=== PATIENT | male | born 1985 | race Caucasian/White ===

== ENCOUNTER 2017-02-15 13:22 | Observation (INO) | payer SELFPAY ==
[~2017-02-15] VITALS: Ht 180.3 cm; Wt 92.0 kg
--- NOTE | 2017-02-15 14:34 | EMERGENCY ROOM VISIT NOTE ---
History Report prepared by Savanah: Gely Villanueva Under the Supervision of: Dr. Lara Metcalf D.O. First contact with patient: 14:15 Chief Complaint: ABDOMINAL PAIN Stated Complaint: PAIN IN RIGHT SIDE AND NUT History of Present Illness The patient is a 31 year old male who presents to the Emergency Room with complaints of worsening central abdominal cramping beginning three days ago. The patient thought his pain was constipation related. He reports taking a laxative last night and not having a bowel movement since. This morning, the patient's pain moved to a right lower abdominal pain which radiates to his testicles. He reports nausea, decreased appetite, chills, and decreased urination. He reports increased pain with standing straight up. The patient took Tylenol this morning with minimal relief. He denies any history of abdominal surgeries. Pt denies headache, change in vision, fevers, chest pain, shortness of breath, vomiting, diarrhea, pain with urination, and melena. Source of History: patient Onset: 3 days ago Position: abdomen Quality: cramping Timing: worsening Associated Symptoms: + chills, + nausea, + abdominal pain, + urinary symptoms, No fevers, No headache, No chest pain, No SOB, No vomiting Review of Systems See HPI for pertinent positives & negatives. A total of 10 systems reviewed and were otherwise negative. Past Medical & Surgical Medical Problems: (1) Ulcer Family History Cancer Diabetes mellitus Hypertension Kidney disease Social History Smoking Status: Current Every Day Smoker Alcohol Use: occasionally Housing Status: lives alone Occupation Status: employed Current/Historical Medications No Active Prescriptions or Reported Meds Allergies Coded Allergies: No Known Allergies (Verified , 10/12/15) Physical Exam Vital Signs Date Time Temp Pulse Resp B/P (MAP) Pulse Ox O2 Delivery O2 Flow Rate FiO2 02/15/17 21:05 85 16 137/67 94 Oxymask 8 02/15/17 20:55 37.9 91 16 131/75 95 Oxymask 8 02/15/17 18:26 74 20 115/78 99 Room Air 02/15/17 18:15 99 Room Air 02/15/17 17:50 78 18 119/71 97 Room Air 02/15/17 16:58 94 20 117/74 99 Room Air 02/15/17 15:22 80 20 114/67 97 Room Air 02/15/17 13:28 38.2 97 18 133/79 96 Room Air Physical Exam GENERAL: alert, well appearing, well nourished, no distress, non-toxic EYE EXAM: normal conjunctiva, PERRL and EOM's grossly intact OROPHARYNX: no exudate, no erythema, lips, buccal mucosa, and tongue normal and mucous membranes are moist NECK: supple, no nuchal rigidity, no adenopathy, non-tender LUNGS: Clear to auscultation. Normal chest wall mechanics HEART: no murmurs, S1 normal and S2 normal ABDOMEN: RLQ pain to palpation, tender at Mcburney's point, no rebound, minimal guarding. BACK: Back is symmetrical on inspection and there is no deformity, no midline tenderness, no CVA tenderness. SKIN: no rashes and no bruising UPPER EXTREMITIES: upper extremities are grossly normal. LOWER EXTREMITIES: No pitting edema. NEURO EXAM: Normal sensorium, cranial nerves II-XII grossly intact, normal speech, no gross weakness of arms, no gross weakness of legs. Medical Decision & Procedures ER Provider Diagnostic Interpretation: Radiology results have been interpreted by the radiologist and reviewed by me. ABD/PELVIS IV AND ORAL CONT FINDINGS: Delivery Table Operator topogram: Unremarkable. Lung bases: Minimal basilar opacities, likely atelectasis. Normal heart size. No pericardial or pleural effusion. Liver: Normal morphology. No liver lesion. Patent hepatic vasculature. Biliary: No intrahepatic or extrahepatic biliary ductal dilatation. Normal gallbladder. Pancreas: Normal. Spleen: Normal. Adrenal glands: Normal. Kidneys and ureters: Normal. No hydronephrosis. Bladder: Normal. Pelvic organs: Prostate and seminal vesicles normal. Bowel: Mild stool burden in the left colon. Oral contrast has transited to the transverse colon. The appendix is dilated, nonopacified with contrast and surrounded by fat stranding, trace fluid, and peritoneal thickening. Multiple foci of gas at the tip noted, which do not all conform to the expected luminal contour. No bowel obstruction. Peritoneal cavity: Trace fluid in the right paracolic gutter. Lymph nodes: No enlarged lymph nodes in the abdomen or pelvis. Vasculature: Aorta and IVC patent and normal in caliber. Abdominal wall: Normal. Musculoskeletal: Subacute to chronic fractures of the anterior fourth and fifth ribs. IMPRESSION: 1. Findings consistent with acute appendicitis. The presence of gas at the appendiceal tip raises concern for either contained perforation and/or gangrenous appendicitis. No periappendiceal abscess. The report will be called/faxed according to standard departmental protocol. Electronically signed by: Ritchie Valladares M.D. Laboratory Results Test 02/15/17 14:59 02/15/17 15:20 Prothrombin Time 11.3 SECONDS (9.0-12.0) Prothromb Time International Ratio 1.1 (0.9-1.1) Total Bilirubin 1.0 mg/dl (0.2-1) Aspartate Amino Transf (AST/SGOT) 15 U/L (15-37) Alanine Aminotransferase (ALT/SGPT) 26 U/L (12-78) Alkaline Phosphatase 117 U/L (45-117) Total Protein 7.9 gm/dl (6.4-8.2) Albumin 4.0 gm/dl (3.4-5.0) Globulin 3.9 gm/dl (2.5-4.0) Albumin/Globulin Ratio 1.0 (0.9-2) Urine Color DK YELLOW Urine Appearance TURBID (CLEAR) Urine pH 5.5 (4.5-7.5) Urine Specific [place] 1.023 (1.000-1.030) Urine Protein NEG (NEG) Urine Glucose (UA) NEG (NEG) Urine Ketones 1+ (NEG) Urine Occult Blood NEG (NEG) Urine Nitrite NEG (NEG) Urine Bilirubin NEG (NEG) Urine Urobilinogen NEG (NEG) Urine Leukocyte Esterase TRACE (NEG) Urine WBC (Auto) 1-5 /hpf (0-5) Urine RBC (Auto) 0-4 /hpf (0-4) Urine Hyaline Casts (Auto) 1-5 /lpf (0-5) Urine Epithelial Cells (Auto) 0-5 /lpf (0-5) Urine Bacteria (Auto) NEG (NEG) Laboratory results per my review. Medications Administered Medications (Trade) Dose Ordered Sig/Drea Route Start Time Stop Time Status Last Admin Dose Admin Sodium Chloride 1,000 ml @ 200 mls/hr Q5H STAT IV 02/15/17 14:45 02/15/17 19:44 DC 02/15/17 15:17 200 MLS/HR Ondansetron HCl (Zofran Inj) 4 mg NOW STAT IV 02/15/17 14:45 02/15/17 14:47 DC 02/15/17 15:16 4 MG Fentanyl Citrate (Fentanyl Inj) 50 mcg NOW STAT IV 02/15/17 14:45 02/15/17 14:47 DC 02/15/17 15:17 50 MCG Acetaminophen 650 mg/Empty Bag 65 ml @ 260 mls/hr NOW STAT IV 02/15/17 15:04 02/15/17 15:18 DC 02/15/17 15:16 260 MLS/HR Morphine Sulfate (MoRPHine SULFATE INJ) 4 mg NOW STAT IV 02/15/17 17:49 02/15/17 17:50 DC 02/15/17 18:18 4 MG Cefoxitin Sodium 2000 mg/Dextrose 60 ml @ 120 mls/hr ONE ONCE IV 02/15/17 18:15 02/15/17 18:44 DC 02/15/17 18:18 120 MLS/HR Bupivacaine HCl/ Epinephrine Bitart (Sensorcaine/ Epinephrine 0.5% Mpf 1:200,000) 30 ml STK-MED ONCE .ROUTE 02/15/17 18:47 02/15/17 18:48 DC 02/15/17 20:43 19 ML Acetaminophen 100 ml @ 400 mls/hr Q8H PRN IV 02/15/17 21:00 03/17/17 20:59 02/15/17 23:25 400 MLS/HR Hydromorphone HCl (Dilaudid Inj) 0.5 mg Q3H PRN IV 02/15/17 21:00 03/01/17 20:59 02/16/17 17:52 0.5 MG Acetaminophen/ Hydrocodone Bitart ([place] 5/325 Tab) 2 tab Q4H PRN PO 02/15/17 21:00 03/01/17 20:59 02/16/17 12:05 2 TAB Hydromorphone HCl (Dilaudid Inj) 1 mg Q3H PRN IV 02/15/17 21:00 03/01/17 20:59 02/16/17 21:25 1 MG Lactated Ringer's 1,000 ml @ 100 mls/hr Q10H IV 02/15/17 20:54 03/17/17 20:53 02/16/17 14:42 100 MLS/HR ED Course 1423: The patient was evaluated in room C3. A complete history and physical exam was performed. 1445: Ordered Fentanyl Citrate 50 mcg IV, Zofran Inj 4 mg IV, Sodium Chloride 1000 ml @ 200 mls/hr IV. 1504: Ordered Acetaminophen 650 mg/Empty Bag 65 ml @ 260 mls/hr IV. 1601: I updated the patient on his elevated white count. He is resting comfortably. 1741: I updated the patient on his CT results. 1743: I reviewed the patient's case with Dr. Polo Surgery. He will evaluate the patient for further management. 1744: Ordered Cefoxitin Sodium 2000 mg IV. 1746: I updated the patient on the treatment plan. 1749: Ordered Morphine Sulfate 4 mg IV. Medical Decision Differential diagnosis: Etiologies such as appendicitis, diverticulitis, PUD, biliary pathology, UTI, pancreatitis, obstruction, mesenteric ischemia, aortic pathology, infections, inflammatory bowel disease, renal colic, as well as others were entertained. Pt with good story for and CT confirmation of appendicitis, no abscess, possible early contained perf. No other acute GI or pathology. No bacteremia/sepsis. Case discussed with general surgery. Antibiotics ordered. Pt NPO. Pain and nausea controlled with meds. Pt aware of all findings and was agreeable with plan. Medication Reconcilliation Current Medication List: was personally reviewed by me Blood Pressure Screening Patient's blood pressure: Normal blood pressure Consults Time Called: 1739 Consulting Physician: Dr. Richardson- Surgery Returned Call: 1742 I reviewed the patient's case with Dr. Christ Lindsay. He will evaluate the patient for further management. Impression Primary Impression: Acute appendicitis Scribe Attestation The scribe's documentation has been prepared under my direction and personally reviewed by me in its entirety. I confirm that the note above accurately reflects all work, treatment, procedures, and medical decision making performed by me. Departure Information Dispostion Being Evaluated By Hospitalist Prescriptions No Active Prescriptions or Reported Meds Referrals No Doctor, Assigned (PCP) Patient Instructions [facility] Problem Qualifiers Primary Impression: Acute appendicitis Acute appendicitis type: with localized peritonitis Qualified Codes: K35.3 - Acute appendicitis with localized peritonitis
[2017-02-15] MEDS ORDERED: FENTANYL CITRATE INJ 50 MCG/1 ML 2 ML VIAL IV STA (14:45)
[2017-02-15] MEDS ORDERED: SODIUM CHLORIDE 0.9% 1000ML 1,000 ML IV STA (14:45)
[2017-02-15] MEDS ORDERED: ONDANSETRON INJ 2 MG/ML 2 ML VIAL IV STA (14:45)
[2017-02-15] MEDS ORDERED: OPTIRAY 320 IV PRN (15:00)
[2017-02-15] MEDS ORDERED: ACETAMINOPHEN IV 650 MG in EMPTY BAG 0 ML IV STA (15:04)
[2017-02-15 15:13] LABS: BASO % 0.1 %; BASO ABS # 0.01 K/uL (0-0.2); EOS % 0.1 %; EOS ABS # 0.01 K/uL (0-0.5); HEMATOCRIT 45.9 % (42-52); HEMOGLOBIN 15.9 g/dL (14.0-18.0); IG# 0.06 K/uL (0.00-0.02); LYMPH % 5.5 %; LYMPH ABS # 0.99 K/uL (1.2-3.4); MEAN CELL VOLUME 91.4 fL (80-100); MEAN CORPUSCULAR HEMOGLOBIN 31.7 pg (25-34); MEAN CORPUSCULAR HGB CONC 34.6 g/dl (32-36); MEAN PLATELET VOLUME 10.2 fL (7.4-10.4); MONO % 9.1 %; MONO ABS # 1.63 K/uL (0.11-0.59); NEUT % 84.9 %; NEUT ABS # 15.18 K/uL (1.4-6.5); PLATELET COUNT 274 K/uL (130-400); RED CELL DISTRIBUTION WIDTH CV 12.5 % (11.5-14.5); RED CELL DISTRIBUTION WIDTH SD 41.7 fL (36.4-46.3); WHITE BLOOD COUNT 17.88 K/uL (4.8-10.8)
[2017-02-15 15:19] LABS: INR 1.1 (0.9-1.1)
[2017-02-15 15:30] LABS: CREATININE 1.08 mg/dl (0.60-1.40); POTASSIUM 4.2 mmol/L (3.5-5.1)
[2017-02-15 15:33] LABS: TOTAL PROTEIN 7.9 gm/dl (6.4-8.2)
--- NOTE | 2017-02-15 17:33 | DIAGNOSTIC IMAGING REPORT ---
ABD/PELVIS IV AND ORAL CONT CLINICAL HISTORY: 31 years-old Male presenting with rlq pain. TECHNIQUE: Multidetector CT of the abdomen and pelvis was performed after the administration of oral and intravenous contrast. IV contrast: 93 mL of Optiray 320. A dose lowering technique was used consistent with the principles of ALARA (as low as reasonably achievable). COMPARISON: None. CT DOSE (mGy.cm): The estimated cumulative dose is 539.61 mGy.cm. 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 Lung bases: Minimal basilar opacities, likely atelectasis. Normal heart size. No pericardial or pleural effusion. Liver: Normal morphology. No liver lesion. Patent hepatic vasculature. Biliary: No intrahepatic or extrahepatic biliary ductal dilatation. Normal gallbladder. Pancreas: Normal. Spleen: Normal. Adrenal glands: Normal. Kidneys and ureters: Normal. No hydronephrosis. Bladder: Normal. Pelvic organs: Prostate and seminal vesicles normal. Bowel: Mild stool burden in the left colon. Oral contrast has transited to the transverse colon. The appendix is dilated, nonopacified with contrast and surrounded by fat stranding, trace fluid, and peritoneal thickening. Multiple foci of gas at the tip noted, which do not all conform to the expected luminal contour. No bowel obstruction. Peritoneal cavity: Trace fluid in the right paracolic gutter. Lymph nodes: No enlarged lymph nodes in the abdomen or pelvis. Vasculature: Aorta and IVC patent and normal in caliber. Abdominal wall: Normal. Musculoskeletal: Subacute to chronic fractures of the anterior fourth and fifth ribs. IMPRESSION: 1. Findings consistent with acute appendicitis. The presence of gas at the appendiceal tip raises concern for either contained perforation and/or gangrenous appendicitis. No periappendiceal abscess. The report will be called/faxed according to standard departmental protocol. Electronically signed by: Ritchie Valladares M.D. 02/15/2017 5:31 PM Dictated Date/Time: 02/15/2017 5:24 PM
[2017-02-15] MEDS ORDERED: CEFOXITIN 2000MG/60 ML D5W IV STA (17:44)
[2017-02-15] MEDS ORDERED: MoRPHine SULFATE 4 MG/ML 1 ML CARP\\VIAL IV STA (17:49)
[2017-02-15 18:15] VITALS: O2SAT 99; Ht 180.3 cm; Wt 92.0 kg
[2017-02-15] MEDS ORDERED: CEFOXITIN IV 2,000 MG in DEXTROSE 5% 50ML 50 ML IV ONE (18:15)
--- NOTE | 2017-02-15 18:15 | NUR ---
A/ID: 31 year old male in ED. c/o central abdominal pain X 3 days. +nausea,+anorexia,+ decreased urination. CT report of acute appendicitis. Possible admission/observation. Admission Assessment done. Code Word/Fall Agreement reviewed with patient, and completed. Continued care in ED by CITLALI Callahan.
[2017-02-15] MEDS ORDERED: DEXAMETHASONE SOD INJ 4 MG/ML VIAL ONE (18:34)
[2017-02-15] MEDS ORDERED: GLYCOPYRROLATE INJ 0.2 MG/ML VIAL ONE (18:34)
[2017-02-15] MEDS ORDERED: MIDAZOLAM HCL 1 MG/ML 2ML VIAL ONE (18:34)
[2017-02-15] MEDS ORDERED: FENTANYL CITRATE INJ 50 MCG/1 ML 2 ML VIAL ONE ×3 (18:34→21:17)
[2017-02-15] MEDS ORDERED: PROPOFOL IV EMULSION 10 MG/ML 20 ML VIAL IV ONE (18:34)
[2017-02-15] MEDS ORDERED: LIDOCAINE HCL 2% 2 ML VIAL (20MG/ML) ONE ×2 (18:34→20:03)
[2017-02-15] MEDS ORDERED: NEOSTIGMINE METHYLSULFATE 5 MG/5 ML SYR ONE (18:34)
[2017-02-15] MEDS ORDERED: ONDANSETRON INJ 2 MG/ML 2 ML VIAL ONE (18:34)
[2017-02-15] MEDS ORDERED: ROCURONIUM BROMIDE 10 MG/ML 5 ML VIAL IV ONE (18:34)
[2017-02-15] MEDS ORDERED: BUPIVACAINE/EPINEPHRINE 0.5% MPF 1:200,000 30 ML VIAL ONE (18:47)
--- NOTE | 2017-02-15 19:22 | Medical Consult ---
Consultation Date of Consultation: Feb 15, 2017. Attending Physician: Reason for Consultation: Acute Appendicitis History of Present Illness Patient presented to the ED today due to a 2 day history of abdominal pain. States it started right below his sternum the 1st day, then migrated up and down his midline abdomen the 2nd day and now it has localized down to his RLQ. States he has felt nauseous since the onset of his pain but denies any episodes of vomiting. He thought he might be constipated so he took a laxative 2 days ago but reports he has not had a bowel movement since he took the laxative. States his appetite has been decreased as well. He has not eaten since yesterday afternoon. Reports that last night he had some chills and felt feverish today. Patient does not currently take any outpatient medications and denies any cardiac or pulmonary problems. 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 CT abd/pelvis in the ED confirms acute appendicitis with gas at the appendiceal tip concerning for either a contained perforation and/or gangrenous appendicitis. with no abscess formation noted. CT also shows a mild stool burden in the left colon but no obstruction noted. Past Medical/Surgical History Medical Problems: (1) Acute appendicitis Status: Acute Family History Cancer Diabetes mellitus Hypertension Kidney disease Social History Smoking Status: Current Every Day Smoker Housing Status: lives alone Occupation Status: employed Allergies Coded Allergies: No Known Allergies (Verified , 10/12/15) Current Inpatient Medications Current Inpatient Medications Medications (Trade) Dose Ordered Sig/Drea Route Start Time Stop Time Status Last Admin Dose Admin Sodium Chloride 1,000 ml @ 200 mls/hr Q5H STAT IV 02/15/17 14:45 02/15/17 19:44 02/15/17 15:17 200 MLS/HR Ioversol (Optiray 320) 100 ml UD PRN IV 02/15/17 15:00 02/19/17 14:59 Review of Systems Constitutional: + fever (today), + chills (last night) Respiratory: No shortness of breath Cardiovascular: No chest pain Abdomen: + pain (RLQ), + nausea, + constipation (took laxative 2 days ago, no BM since), No vomiting, No diarrhea Genitourinary - Male: No dysuria Hematologic / Lymphatic: No abnormal bleeding/bruising Integumentary: No rash, No color change Physical Exam Date Time Temp Pulse Resp B/P (MAP) Pulse Ox O2 Delivery O2 Flow Rate FiO2 02/15/17 18:26 74 20 115/78 99 Room Air 02/15/17 18:15 99 Room Air 02/15/17 17:50 78 18 119/71 97 Room Air 02/15/17 16:58 94 20 117/74 99 Room Air 02/15/17 15:22 80 20 114/67 97 Room Air 02/15/17 13:28 38.2 97 18 133/79 96 Room Air General Appearance: WD/WN, no apparent distress Head: normocephalic, atraumatic Eyes: normal inspection ENT: hearing grossly normal Neck: trachea midline Respiratory/Chest: lungs clear, normal breath sounds, no respiratory distress, no accessory muscle use Cardiovascular: regular rate, rhythm, no gallop, no murmur Abdomen/GI: normal bowel sounds, soft, no organomegaly, no pulsatile mass, + tenderness (RLQ TTP) Neurologic/Psych: alert, oriented x 3 Skin: normal color, warm/dry, no rash Laboratory Results Last 24 Hours Test 02/15/17 14:59 02/15/17 15:20 White Blood Count 17.88 K/uL Red Blood Count 5.02 M/uL Hemoglobin 15.9 g/dL Hematocrit 45.9 % Mean Corpuscular Volume 91.4 fL Mean Corpuscular Hemoglobin 31.7 pg Mean Corpuscular Hemoglobin Concent 34.6 g/dl Platelet Count 274 K/uL Mean Platelet Volume 10.2 fL Neutrophils (%) (Auto) 84.9 % Lymphocytes (%) (Auto) 5.5 % Monocytes (%) (Auto) 9.1 % Eosinophils (%) (Auto) 0.1 % Basophils (%) (Auto) 0.1 % Neutrophils # (Auto) 15.18 K/uL Lymphocytes # (Auto) 0.99 K/uL Monocytes # (Auto) 1.63 K/uL Eosinophils # (Auto) 0.01 K/uL Basophils # (Auto) 0.01 K/uL RDW Standard Deviation 41.7 fL RDW Coefficient of Variation 12.5 % Immature Granulocyte % (Auto) 0.3 % Immature Granulocyte # (Auto) 0.06 K/uL Prothrombin Time 11.3 SECONDS Prothromb Time International Ratio 1.1 Sodium Level 133 mmol/L Potassium Level 4.2 mmol/L Chloride Level 100 mmol/L Carbon Dioxide Level 26 mmol/L Anion Gap 7.0 mmol/L Blood Urea Nitrogen 13 mg/dl Creatinine 1.08 mg/dl Est Creatinine Clear Calc Drug Dose 114.9 ml/min Estimated GFR () 105.4 Estimated GFR (Non- 91.0 BUN/Creatinine Ratio 11.9 Random Glucose 98 mg/dl Calcium Level 9.0 mg/dl Total Bilirubin 1.0 mg/dl Aspartate Amino Transf (AST/SGOT) 15 U/L Alanine Aminotransferase (ALT/SGPT) 26 U/L Alkaline Phosphatase 117 U/L Total Protein 7.9 gm/dl Albumin 4.0 gm/dl Globulin 3.9 gm/dl Albumin/Globulin Ratio 1.0 Urine Color DK YELLOW Urine Appearance TURBID Urine pH 5.5 Urine Specific [place] 1.023 Urine Protein NEG Urine Glucose (UA) NEG Urine Ketones 1+ Urine Occult Blood NEG Urine Nitrite NEG Urine Bilirubin NEG Urine Urobilinogen NEG Urine Leukocyte Esterase TRACE Urine WBC (Auto) 1-5 /hpf Urine RBC (Auto) 0-4 /hpf Urine Hyaline Casts (Auto) 1-5 /lpf Urine Epithelial Cells (Auto) 0-5 /lpf Urine Bacteria (Auto) NEG Assessment & Plan Acute appendicitis with possible contained perforation and/or gangrenous appendicitis. No periappendiceal abscess. Via CT abd/pelvis Patient scheduled for laparoscopic appendectomy tonight with Dr. Richardson. NPO, SCDs, IV fluids, 2g IV cefoxitin administered. Risks, benefits and alternatives to the procedure were discussed with the patient and his family - all questions were answered. Findings discussed with Dr. Richardson. Please contact with questions or concerns. as above. discussed options/risks. questions answered. will proceed with lap/ poss open appendectomy tonight.
[2017-02-15] MEDS ORDERED: MoRPHine SULFATE 2 MG/ML CARP ONE (19:43)
--- NOTE | 2017-02-15 20:47 | [facility] Operative Report ---
Operative Report Operative Date Feb 15, 2017. Pre-Operative Diagnosis Acute appendicitis Post-Operative Diagnosis Acute appendicitis Procedure(s) Performed Laparoscopic Appendectomy Surgeon Dr. Richardson Certified Shorthand Reporter Surgeon(s) London Ríos Findings acutely inflammed appendix with gangrenous tip. no obvious perforation Specimens Permanent Specimen A. Appendix Anesthesia get Complication(s) None Disposition Recovery Room / PACU Description of Procedure After informed consent was obtained the patient was taken the operating room and placed in a supine position. After successful intubation the left arm was tucked and a Woodall catheter was placed. The abdomen was then shaved and sterilely prepped and draped in usual fashion. An infraumbilical incision was made with an 11 blade scalpel and carried down through the soft tissue using electrocautery. Anterior rectus fascia was opened using electrocautery and 2 # 0 Vicryl stay sutures were placed. Peritoneum was elevated with hemostats and incised under direct vision using a Metzenbaum scissor. A finger sweep was performed. A 12 mm Mason trocar was placed and the abdomen was insufflated to 18 mmHg. Laparoscope was inserted and the abdomen was examined 360. There was already some peritoneal inflammation and dilated small bowel consistent with an ileus. A suprapubic 5 mm port and a left lower quadrant 12 mm port were placed under direct vision. The patient was placed in a Trendelenburg position and slightly airplaned to the left. There was obvious inflammation in the right lower quadrant. I was able to roll the cecum back exposing the base of the appendix. The base itself was not inflamed but the entire distal appendix was markedly inflamed and retrocecal. I was able to create a small window in the mesoappendix at its base with the cecum and used a ISAI Brown cartridge stapler to transect it at its base with the cecum. I then used primarily blunt dissection to free up the appendix from surrounding retrocecal tissue. The retroperitoneum was markedly inflamed and thickened as well. Eventually I was able to identify the tip and elevate it. A second firing of a ISAI 60 mm Brown cartridge was used to transect the meso-appendix. The appendix was placed into an Endo Catch bag. We thoroughly irrigated the right lower quadrant. There was adequate hemostasis at the end of the procedure. I also irrigated the pelvis and suctioned it free as well as the right upper quadrant. We did run the small bowel backward and found no other abnormalities. No other gross abnormalities were found within the abdomen. There was no fecal material and no purulent material and no definite perforation of the appendix although the distal one half the appendix was green and gangrenous and necrotic in nature. A final irrigation was performed. A 10 flat Quentin-Castellanos drain was placed in the right lower quadrant and brought out through the left lower quadrant trocar site. All the trochars were removed and the abdomen desufflated. The fascia the camera port was closed using 0 Vicryl figure-of- eight fashion. The drain was sewn in using an 0 Vicryl. All wounds were irrigated and closed using 4-0 Monocryl. Marcaine was injected around him for postoperative analgesia and skin glue used as a dressing. The patient was awaken extubated and transferred recovery in stable condition My physician's administrative assistant front desk was present throughout the entire case. He helped prepped the patient as well as hold exposure for the trocar placement. He ran the camera as well as help retract throughout the case. He also helped with wound closure and dressing placement at the end of the procedure I attest to the content of the Intraoperative Record and any orders documented therein. Any exceptions are noted below.
[2017-02-15] MEDS ORDERED: HYDROCODONE/ACETAMIN 5/325MG TAB PO PRN ×2 (21:00)
[2017-02-15] MEDS ORDERED: ONDANSETRON INJ 2 MG/ML 2 ML VIAL IV PRN ×2 (21:00→21:15)
[2017-02-15] MEDS ORDERED: FENTANYL CITRATE INJ 50 MCG/1 ML 2 ML VIAL IV PRN (21:15)
[2017-02-15] MEDS ORDERED: PROMETHAZINE HCL INJ 6.25 MG in SODIUM CHLORIDE 0.9% 50ML 50 ML IV PRN (21:15)
[2017-02-15] MEDS ORDERED: HYDROmorphone INJ 1 MG/ML SYR IV PRN (21:15)
[2017-02-15] MEDS ORDERED: EpHEDrine SULFATE INJ 50 MG/ML AMP IV PRN (21:15)
[2017-02-15] MEDS ORDERED: ATROPINE SULFATE 0.1 MG/ML 5ML SYR IV PRN (21:15)
[2017-02-15 22:00] VITALS: BP 127/68; PULSE 105; TEMP 37.6; O2SAT 92
--- NOTE | 2017-02-15 22:08 | Anesthesiology Progress Note ---
Anesthesia Post Op Note Date & Time Feb 15, 2017 at 22:08 Vital Signs Pain Intensity: 5 Vital Signs Past 12 Hours Date Time Temp Pulse Resp B/P (MAP) Pulse Ox O2 Delivery O2 Flow Rate FiO2 02/15/17 21:45 81 16 121/64 95 Nasal Cannula 2 02/15/17 21:35 37.4 86 16 123/64 95 Nasal Cannula 2 02/15/17 21:25 78 15 119/67 95 Oxymask 4 02/15/17 21:15 96 14 134/64 97 Oxymask 8 02/15/17 21:05 85 16 137/67 94 Oxymask 8 02/15/17 20:55 37.9 91 16 131/75 95 Oxymask 8 02/15/17 18:26 74 20 115/78 99 Room Air 02/15/17 18:15 99 Room Air 02/15/17 17:50 78 18 119/71 97 Room Air 02/15/17 16:58 94 20 117/74 99 Room Air 02/15/17 15:22 80 20 114/67 97 Room Air 02/15/17 13:28 38.2 97 18 133/79 96 Room Air Notes Mental Status: alert / awake / arousable, participated in evaluation Pt Amnestic to Procedure: Yes Nausea / Vomiting: adequately controlled Pain: adequately controlled Airway Patency, RR, SpO2: stable & adequate BP & HR: stable & adequate Hydration State: stable & adequate Anesthetic Complications: no major complications apparent
--- NOTE | 2017-02-15 22:24 | NUR ---
OBS/A: Pt. arrived to floor at 2200, from a lap appendectomy. Pt. is A&OX4, clear on 2L, reporting pain. Pulses palpable, no edema observed. IV fluids infusing per order. BS hypox4 quadrants, denies gas. NPO until the morning. Has not voided, urinal explained. Call cm within reach, hourly rounding maintained. London Sequeira PA-C made aware of pt.'s high temperature. He will follow up with Dylan, and see if he wants to round on the pt. tonight.
[2017-02-15 22:34] VITALS: BP 121/71; PULSE 103; TEMP 37.8; O2SAT 96
[2017-02-15] MEDS: HYDROmorphone INJ 2 MG/ML SYR/VIAL IV PRN (22:37)
[2017-02-15 23:00] VITALS: BP 129/71; PULSE 92; TEMP 37.3; O2SAT 96
[2017-02-15] MEDS: ACETAMINOPHEN IV 100 ML IV PRN (23:25)
[2017-02-16] VITALS: BP 123/74; PULSE 103; TEMP 37.1; O2SAT 93
--- NOTE | 2017-02-16 | NUR ---
OBS/ID: Pt. alert and oriented x 4. VSS. Maintaining NPO except chips and sips as ordered. LR infusing at 100 ml/hr with intermittent IV Mefoxin to right AC vein. Pain managed with medication ordered. Dermabond to 2 lap sites to abdomen clean, dry, and intact. ELBERT with 4x4 and medipore dressing to left lower quadrant patent and draining serosanguineous drainage. Repositions self in bed. Encouraged to ring for assistance, call cm within reach.
[2017-02-16] MEDS: CEFOXITIN IV 2,000 MG in DEXTROSE 5% 50ML 50 ML IV SCH ×4 (00:23→23:21)
[2017-02-16] MEDS ORDERED: IV FLUIDS COMPLETED PRN (00:30)
[2017-02-16 01:00] VITALS: BP 120/68; PULSE 90; TEMP 36.9; O2SAT 94
[2017-02-16 03:50] VITALS: BP 110/63; PULSE 88; TEMP 36.9; O2SAT 94
--- NOTE | 2017-02-16 04:00 | NUR ---
OBS: Pt. sleeping comfortably in bed, awakens easily. Assessment unchanged. LR continues to infuse at 100 ml/hr to right AC vein. Pain managed with medication ordered. Repositions self in bed. Ambulates to the bathroom with 1 person assist. Encouraged to ring for assistance, call cm within reach.
[2017-02-16] MEDS: LACTATED RINGER'S 1000ML 1,000 ML IV SCH ×3 (04:08→14:42)
[2017-02-16] MEDS: HYDROmorphone INJ 2 MG/ML SYR/VIAL IV PRN ×3 (04:29→21:25)
[2017-02-16 06:18] LABS: BASO % 0.1 %; BASO ABS # 0.01 K/uL (0-0.2); HEMATOCRIT 39.6 % (42-52); HEMOGLOBIN 13.7 g/dL (14.0-18.0); IG# 0.06 K/uL (0.00-0.02); LYMPH % 4.8 %; LYMPH ABS # 0.96 K/uL (1.2-3.4); MEAN CORPUSCULAR HEMOGLOBIN 32.2 pg (25-34); MEAN CORPUSCULAR HGB CONC 34.6 g/dl (32-36); MEAN PLATELET VOLUME 9.9 fL (7.4-10.4); MONO % 6.5 %; NEUT % 88.3 %; NEUT ABS # 17.64 K/uL (1.4-6.5); PLATELET COUNT 227 K/uL (130-400); RED CELL DISTRIBUTION WIDTH CV 12.7 % (11.5-14.5); RED CELL DISTRIBUTION WIDTH SD 42.8 fL (36.4-46.3); WHITE BLOOD COUNT 19.97 K/uL (4.8-10.8)
[2017-02-16 06:48] LABS: CALCIUM 8.1 mg/dl (8.5-10.1); CREATININE 0.89 mg/dl (0.60-1.40); POTASSIUM 4.5 mmol/L (3.5-5.1)
[2017-02-16 07:10] VITALS: BP 117/65; PULSE 83; TEMP 36.8; O2SAT 94
--- NOTE | 2017-02-16 08:00 | NUR ---
OBS: Pt resting in bed. Medicated as needed for right abdominal pain. Iv fluids as per ordered. OOB ambulating in the halls - encouraged to continue to do so. Continues to be NPO.
--- NOTE | 2017-02-16 09:23 | Surgery Progress Note ---
Surgery Progress Note Date of Service Feb 16, 2017. Subjective Post OP Day: 1 still having some RLQ pain but better than yesterday. Objective Vital Signs: Date Time Temp Pulse Resp B/P (MAP) Pulse Ox O2 Delivery O2 Flow Rate FiO2 02/16/17 08:00 Room Air 02/16/17 07:10 36.8 83 17 117/65 (82) 94 Room Air 02/16/17 03:50 36.9 88 18 110/63 (79) 94 Room Air 02/16/17 01:00 36.9 90 18 120/68 (85) 94 Room Air 02/16/17 00:00 37.1 103 18 123/74 (90) 93 Room Air 02/15/17 23:17 Room Air 02/15/17 23:00 37.3 92 16 129/71 (90) 96 Room Air 02/15/17 22:34 37.8 103 16 121/71 (88) 96 02/15/17 22:00 37.6 105 18 127/68 (87) 92 Nasal Cannula 2.0 02/15/17 22:00 92 Nasal Cannula 2.0 02/15/17 22:00 Nasal Cannula 2.0 02/15/17 21:45 81 16 121/64 95 Nasal Cannula 2 02/15/17 21:35 37.4 86 16 123/64 95 Nasal Cannula 2 02/15/17 21:25 78 15 119/67 95 Oxymask 4 02/15/17 21:15 96 14 134/64 97 Oxymask 8 02/15/17 21:05 85 16 137/67 94 Oxymask 8 02/15/17 20:55 37.9 91 16 131/75 95 Oxymask 8 02/15/17 18:26 74 20 115/78 99 Room Air 02/15/17 18:15 99 Room Air 02/15/17 17:50 78 18 119/71 97 Room Air 02/15/17 16:58 94 20 117/74 99 Room Air 02/15/17 15:22 80 20 114/67 97 Room Air 02/15/17 13:28 38.2 97 18 133/79 96 Room Air General Appearance: no apparent distress Abdomen: soft, + pertinent finding (expected tenderness. ELBERT serous. ) Laboratory Results: Results Past 24 Hours Test 02/15/17 14:59 02/15/17 15:20 02/16/17 06:04 Range/Units White Blood Count 17.88 19.97 4.8-10.8 K/uL Red Blood Count 5.02 4.26 4.7-6.1 M/uL Hemoglobin 15.9 13.7 14.0-18.0 g/dL Hematocrit 45.9 39.6 42-52 % Mean Corpuscular Volume 91.4 93.0 80-100 fL Mean Corpuscular Hemoglobin 31.7 32.2 25-34 pg Mean Corpuscular Hemoglobin Concent 34.6 34.6 32-36 g/dl Platelet Count 274 227 130-400 K/uL Mean Platelet Volume 10.2 9.9 7.4-10.4 fL Neutrophils (%) (Auto) 84.9 88.3 % Lymphocytes (%) (Auto) 5.5 4.8 % Monocytes (%) (Auto) 9.1 6.5 % Eosinophils (%) (Auto) 0.1 0.0 % Basophils (%) (Auto) 0.1 0.1 % Neutrophils # (Auto) 15.18 17.64 1.4-6.5 K/uL Lymphocytes # (Auto) 0.99 0.96 1.2-3.4 K/uL Monocytes # (Auto) 1.63 1.30 0.11-0.59 K/uL Eosinophils # (Auto) 0.01 0.00 0-0.5 K/uL Basophils # (Auto) 0.01 0.01 0-0.2 K/uL RDW Standard Deviation 41.7 42.8 36.4-46.3 fL RDW Coefficient of Variation 12.5 12.7 11.5-14.5 % Immature Granulocyte % (Auto) 0.3 0.3 % Immature Granulocyte # (Auto) 0.06 0.06 0.00-0.02 K/uL Prothrombin Time 11.3 9.0-12.0 SECONDS Prothromb Time International Ratio 1.1 0.9-1.1 Sodium Level 133 136 136-145 mmol/L Potassium Level 4.2 4.5 3.5-5.1 mmol/L Chloride Level 100 104 98-107 mmol/L Carbon Dioxide Level 26 26 21-32 mmol/L Anion Gap 7.0 6.0 3-11 mmol/L Blood Urea Nitrogen 13 11 7-18 mg/dl Creatinine 1.08 0.89 0.60-1.40 mg/dl Est Creatinine Clear Calc Drug Dose 114.9 139.4 ml/min Estimated GFR () 105.4 132.1 Estimated GFR (Non- 91.0 113.9 BUN/Creatinine Ratio 11.9 12.4 10-20 Random Glucose 98 112 70-99 mg/dl Calcium Level 9.0 8.1 8.5-10.1 mg/dl Total Bilirubin 1.0 0.2-1 mg/dl Aspartate Amino Transf (AST/SGOT) 15 15-37 U/L Alanine Aminotransferase (ALT/SGPT) 26 12-78 U/L Alkaline Phosphatase 117 45-117 U/L Total Protein 7.9 6.4-8.2 gm/dl Albumin 4.0 3.4-5.0 gm/dl Globulin 3.9 2.5-4.0 gm/dl Albumin/Globulin Ratio 1.0 0.9-2 Urine Color DK YELLOW Urine Appearance TURBID CLEAR Urine pH 5.5 4.5-7.5 Urine Specific [place] 1.023 1.000-1.030 Urine Protein NEG NEG Urine Glucose (UA) NEG NEG Urine Ketones 1+ NEG Urine Occult Blood NEG NEG Urine Nitrite NEG NEG Urine Bilirubin NEG NEG Urine Urobilinogen NEG NEG Urine Leukocyte Esterase TRACE NEG Urine WBC (Auto) 1-5 0-5 /hpf Urine RBC (Auto) 0-4 0-4 /hpf Urine Hyaline Casts (Auto) 1-5 0-5 /lpf Urine Epithelial Cells (Auto) 0-5 0-5 /lpf Urine Bacteria (Auto) NEG NEG Assessment & Plan POD #1 doing as expected will try some liquids WBC increased to 19,000 not ready for d/c yet continue antibiotics increase activity
--- NOTE | 2017-02-16 12:00 | NUR ---
OBS: pt resting in bed - medicated with Lincoln for pain - right sided abdominal as well as a headache. Iv fluids as per ordered. Tolerating full liquid diet. OOB independently and walking the halls.
[2017-02-16] MEDS: HYDROmorphone INJ 1 MG/ML SYR IV PRN ×2 (14:04→17:52)
[2017-02-16 14:35] VITALS: BP 117/63; PULSE 86; TEMP 36.8; O2SAT 91
--- NOTE | 2017-02-16 16:00 | NUR ---
OBS: Pt. is A&Ox4, clear on room air, pain managed with prn medications. IV fluids infusing per order. Pulses palpable, no edema observed. BS hypox4 quadrants, passing gas, tolerating a full liquid diet. Voiding in the urinal, no difficulty. OOB independently. Ambulating frequently in the halls. Call cm within reach, hourly rounding maintained.
[2017-02-16 23:25] VITALS: BP 101/64; PULSE 90; TEMP 37.2; O2SAT 95
[2017-02-16] MEDS: ACETAMINOPHEN IV 100 ML IV PRN (23:38)
--- NOTE | 2017-02-17 | NUR ---
OBS/ID: Pt. alert and oriented x 4. VSS. Tolerating full liquid diet per pt. LR infusing at 100 ml/hr with intermittent IV Mefoxin to right AC vein. Pain managed with medication ordered. Dermabond to 2 lap sites to abdomen clean, dry, and intact. ELBERT with 4x4 and medipore dressing to left lower quadrant patent and draining serosanguineous drainage. Repositions in bed and ambulates in hallways and in room independently. Discharge plan to home when stable.
[2017-02-17] MEDS: HYDROmorphone INJ 2 MG/ML SYR/VIAL IV PRN ×2 (01:43→07:02)
[2017-02-17] MEDS: LACTATED RINGER'S 1000ML 1,000 ML IV SCH ×3 (01:43→21:53)
--- NOTE | 2017-02-17 04:00 | NUR ---
OBS: Pt. sleeping comfortably in bed, awakens easily. Assessment unchanged. LR continues to infuse at 100 ml/hr to right AC. Pain managed with IV medication ordered. Dermabond to 2 lap site intact. ELBERT patent and draining serosanguineous drainage. Encouraged to ring for assistance, call cm within reach.
[2017-02-17 06:35] LABS: BASO % 0.1 %; BASO ABS # 0.01 K/uL (0-0.2); EOS % 0.8 %; EOS ABS # 0.08 K/uL (0-0.5); HEMATOCRIT 36.7 % (42-52); HEMOGLOBIN 12.3 g/dL (14.0-18.0); IG# 0.03 K/uL (0.00-0.02); LYMPH % 18.7 %; MEAN CELL VOLUME 93.4 fL (80-100); MEAN CORPUSCULAR HEMOGLOBIN 31.3 pg (25-34); MEAN CORPUSCULAR HGB CONC 33.5 g/dl (32-36); MEAN PLATELET VOLUME 10.2 fL (7.4-10.4); MONO % 12.4 %; MONO ABS # 1.19 K/uL (0.11-0.59); NEUT % 67.7 %; NEUT ABS # 6.51 K/uL (1.4-6.5); PLATELET COUNT 211 K/uL (130-400); RED CELL DISTRIBUTION WIDTH CV 12.7 % (11.5-14.5); RED CELL DISTRIBUTION WIDTH SD 43.5 fL (36.4-46.3); WHITE BLOOD COUNT 9.62 K/uL (4.8-10.8)
[2017-02-17] MEDS: DOCUSATE SODIUM 100 MG CAP PO PRN ×2 (07:09→23:58)
[2017-02-17 07:25] VITALS: BP 111/71; PULSE 85; TEMP 37.2; O2SAT 94
--- NOTE | 2017-02-17 07:28 | Surgery Progress Note ---
Surgery Progress Note Date of Service Feb 17, 2017. Subjective Post OP Day: 2 + complaints (Still sore at incision sites), + ambulating (frequently around the he), + flatus, + diet (Full liquids), No bowel movement, No nausea, No vomiting Objective Vital Signs: Date Time Temp Pulse Resp B/P (MAP) Pulse Ox O2 Delivery O2 Flow Rate FiO2 02/16/17 23:25 37.2 90 18 101/64 (76) 95 Room Air 02/16/17 23:21 Room Air 02/16/17 15:15 Room Air 02/16/17 14:35 36.8 86 17 117/63 (81) 91 Room Air 02/16/17 08:00 Room Air Physical Exam: ELBERT drainage (Minimal drainage in suction bulb, serosanguinous) General Appearance: WD/WN, no apparent distress Head: normocephalic, atraumatic Neck: trachea midline Respiratory/Chest: no respiratory distress, no accessory muscle use Abdomen: normal bowel sounds, soft, no organomegaly, no pulsatile mass, + distended (Mildly), + tenderness (Incision sites, Mild) Incision(s): clean, dry, intact, no erythema, no drainage Laboratory Results: Results Past 24 Hours Test 02/17/17 05:30 Range/Units White Blood Count 9.62 4.8-10.8 K/uL Red Blood Count 3.93 4.7-6.1 M/uL Hemoglobin 12.3 14.0-18.0 g/dL Hematocrit 36.7 42-52 % Mean Corpuscular Volume 93.4 80-100 fL Mean Corpuscular Hemoglobin 31.3 25-34 pg Mean Corpuscular Hemoglobin Concent 33.5 32-36 g/dl Platelet Count 211 130-400 K/uL Mean Platelet Volume 10.2 7.4-10.4 fL Neutrophils (%) (Auto) 67.7 % Lymphocytes (%) (Auto) 18.7 % Monocytes (%) (Auto) 12.4 % Eosinophils (%) (Auto) 0.8 % Basophils (%) (Auto) 0.1 % Neutrophils # (Auto) 6.51 1.4-6.5 K/uL Lymphocytes # (Auto) 1.80 1.2-3.4 K/uL Monocytes # (Auto) 1.19 0.11-0.59 K/uL Eosinophils # (Auto) 0.08 0-0.5 K/uL Basophils # (Auto) 0.01 0-0.2 K/uL RDW Standard Deviation 43.5 36.4-46.3 fL RDW Coefficient of Variation 12.7 11.5-14.5 % Immature Granulocyte % (Auto) 0.3 % Immature Granulocyte # (Auto) 0.03 0.00-0.02 K/uL Assessment & Plan POD# 2 s/p laparoscopic cholecystectomy Currently tolerating full liquids - no nausea or vomiting. Still some pain at incision sites (as expected post op) +flatus, no BM yet. WBC decreased since yesterday - current 9.62 Ambulating around halls without trouble. ELBERT with minimal drainage, serosanguinous - will d/c drain. Will d/c today to home. Findings discussed with Dr. Richardson. Please contact with any questions of concerns.
[2017-02-17] MEDS ORDERED: HYDR-5688 PO (07:49)
--- NOTE | 2017-02-17 07:55 | Discharge Instructions ---
Discharge Instructions Date of Service Feb 17, 2017. Admission Reason for Admission: Acute Appendicitis Discharge Discharge Diagnosis / Problem: Acute Appendicitis Discharge Goals Goal(s): Decrease discomfort, Improve function Activity Recommendations Activity Limitations: as noted below Lifting Limitations: no more than 10 pounds, until after follow-up appointment Exercise/Sports Limitations: until after follow-up appointment May Resume Sexual Activity: after follow-up appointment Shower/Bathe: tomorrow Driving or Machine Use: resume 3 days after discharge (Please do not drive while using narcotic pain medication.) . Instructions / Follow-Up Instructions / Follow-Up You have surgical glue covering your incisions. Please allow this to fall off on its own. You have been prescribed Cooper to take as needed for pain. You may alternate this with Ibuprofen for better pain relief as well. Please follow-up with Dr. Richardson in 1-2 weeks. Please contact our office at to schedule an appointment if you have not done so already. Please contact our office with any questions or concerns. [facility]. [address] [facility] [place] [address]. Current Hospital Diet Patient's current hospital diet: Full Liquid Diet Discharge Diet Recommended Diet: Regular Diet Procedures Procedures Performed: Laparoscopic Appendectomy Pending Studies Studies pending at discharge: yes List of pending studies: pathology Medical Emergencies . Who to Call and When: Medical Emergencies: If at any time you feel your situation is an emergency, please call 911 immediately. . Non-Emergent Contact Non-Emergency issues call your: Primary Care Provider, Surgeon Call Non-Emergent contact if: you have a fever, temperature is above 101.5, your pain is not controlled, your pain is worsening, wound has increased drainage, wound has increased redness, you have any medication questions . "Provider Documentation" section prepared by London Bustamante. . VTE Core Measure Inpt VTE Proph given/why not?: SCD's [place] Drug Monitoring Program Search Results: patient reviewed within database, no issues identified
[2017-02-17] MEDS: ACETAMINOPHEN IV 100 ML IV PRN (07:58)
--- NOTE | 2017-02-17 08:00 | NUR ---
OBS: Pt resting in bed at this time, alert and oriented x4. VSS on room air. Pt rating abdominal pain as 4/10. Surgeon in to speak with pt this AM and stated he will readjust pain regimen today and reassess potential for discharge tomorrow. Pt ambulating independently in the hallways. Tolerating full liquid diet with no nausea/vomiting. IVF infusing per MD orders into right a/c site, no complications noted. ELBERT drain removed by SUJEY this AM. 4x4 with medipore dressing to ELBERT removal site CDI. Lap sites x2 with Dermabond CDI. Call cm within reach. Discharge planning ongoing.
[2017-02-17] MEDS ORDERED: KETOROLAC TROMETHAMINE 30 MG/ML VIAL IV PRN (08:30)
[2017-02-17] MEDS: IBUPROFEN 600 MG TAB PO SCH ×3 (09:46→21:11)
[2017-02-17] MEDS: OXYCODONE HCL IR 5 MG TAB (IMMEDIATE RELEASE) PO PRN ×3 (09:47→21:13)
--- NOTE | 2017-02-17 12:00 | NUR ---
OBS note: Pt resting in bed at this time. Alert and oriented x4. VSS on room air. No change to previously documented assessment. Pt reports relief of pain with adjusted pain medication regimen. Call cm within reach. Respirations even and unlabored. Discharge planning ongoing.
[2017-02-17 15:05] VITALS: BP 112/64; PULSE 73; TEMP 36.8; O2SAT 96
--- NOTE | 2017-02-17 16:00 | NUR ---
Obs: Pt A&Ox4. Pain being controlled with routine/prn pain medications. IV fluids infusing per MD order. Lungs clear to auscultation bilaterally on RA. Voiding in toilet without difficulty. Bowel sounds hypoactive and passing flatus. Incision sites to abdomen x2 open to air, well approximated, no drainage, intact. OOB independent, gait steady. Tolerating a full liquid diet and PO fluids. D/C uncertain at this time. Call cm in reach. Family at bedside. Will continue to monitor.
--- NOTE | 2017-02-17 20:00 | NUR ---
Obs: Pt A&Ox4. Pt resting in bed. No changes from previous assessment. Pain being well controlled with prn/routine pain medications. Call cm in reach. Will continue to monitor.
[2017-02-17 23:08] VITALS: BP 123/77; PULSE 73; TEMP 36.9; O2SAT 95
--- NOTE | 2017-02-18 | NUR ---
ID/OBS: Pt A&O x4. VSS. OOB independently. Tolerating full liquid diet. Pain controlled with PRN pain meds. Medicated with Toradol at this time. Pt states he has not had BM since 02/12, passing minimal gas. PRN colace BID administered at this time. 3 sites to abdomen; midline umbilical site with Dermabond is mildly reddened. Lower incision appears WNL. 4x4 to left lower quadrant is clean dry and intact. Pt plans to discharge home when medically stable. He stated since his pain meds were changed yesterday, his pain has been more tolerable tonight. Will continue to monitor.
[2017-02-18] MEDS: OXYCODONE HCL IR 5 MG TAB (IMMEDIATE RELEASE) PO PRN ×2 (02:54→07:33)
--- NOTE | 2017-02-18 04:00 | NUR ---
OBS: Pt asleep in room at this time. No changes from previous OBS note. Will continue to monitor.
--- NOTE | 2017-02-18 06:40 | Surgery Progress Note ---
Surgery Progress Note Date of Service Feb 18, 2017. Subjective Post OP Day: 3 + feeling well, + ambulating, + flatus, + pain controlled, + diet (Tolerating full liquids), No complaints, No bowel movement, No nausea, No vomiting Patient states he feels his pain is finally under control. Objective Vital Signs: Date Time Temp Pulse Resp B/P (MAP) Pulse Ox O2 Delivery O2 Flow Rate FiO2 02/17/17 23:47 Room Air 02/17/17 23:08 36.9 73 16 123/77 (92) 95 Room Air 02/17/17 15:10 Room Air 02/17/17 15:05 36.8 73 18 112/64 (80) 96 Room Air 02/17/17 08:00 Room Air 02/17/17 07:25 37.2 85 19 111/71 (84) 94 Room Air General Appearance: WD/WN, no apparent distress Head: normocephalic, atraumatic Respiratory/Chest: no respiratory distress, no accessory muscle use Abdomen: normal bowel sounds, soft, no organomegaly, + distended (mild), + tenderness (mild) Incision(s): clean, dry, intact, no erythema, no drainage Assessment & Plan POD# 3 s/p laparoscopic appendectomy Pain controlled on new regiment Tolerating full liquids - no nausea/vomiting. +flatus, no BM yet. Ambulating frequently Likely d/c home today. POD# 2 s/p laparoscopic appendectomy Currently tolerating full liquids - no nausea or vomiting. Still some pain at incision sites (as expected post op) +flatus, no BM yet. WBC decreased since yesterday - current 9.62 Ambulating around halls without trouble. ELBERT with minimal drainage, serosanguinous - will d/c drain. Will d/c today to home. Findings discussed with Dr. Richardson. Please contact with any questions of concerns.
[2017-02-18 07:20] VITALS: O2SAT 95
[2017-02-18] MEDS: LACTATED RINGER'S 1000ML 1,000 ML IV SCH (07:30)
--- NOTE | 2017-02-18 08:00 | NUR ---
OBS NOTE: A/Ox4. Lungs clear on RA. Triflow 2250. IVF infusing into RAC intact and patent. Hypo bowel sounds noted x4 quadrants. States he is passing little gas at this time. Abd in slightly distended and tender to touch in the RLQ. There is redness noted to Dermabond site at the umbilicus. Pain is being controlled with prn pain medications. Tolerating a full liquid diet. OOB independently. Will cont to monitor. Discharge uncertain at this time
[2017-02-18 08:07] VITALS: BP 120/77; PULSE 77; TEMP 37; O2SAT 95
[2017-02-18] MEDS ORDERED: OXYC-57 PO (08:20)
[2017-02-18] MEDS ORDERED: SULF800T23 PO (08:20)
[2017-02-18] MEDS: IBUPROFEN 600 MG TAB PO SCH (08:42)
[2017-02-18 09:15] VITALS: BP 120/77; PULSE 77; TEMP 37; O2SAT 95
== END 2017-02-18 10:16 | disposition home or self-care (01) ==
LOC: C.EDB 13:24 → C.MSW 21:05 → ENRESERV 21:13
PROVIDERS: ADMIT Surgery; ATTEND Surgery
DX: K35.3 Acute appendicitis with localized peritonitis (principal); Z83.3 Family history of diabetes mellitus; Z82.49 Family history of ischemic heart disease and other diseases of the circulatory system; F17.200 Nicotine dependence, unspecified, uncomplicated

== ENCOUNTER 2017-06-12 18:14 | Emergency (ER) | payer SELFPAY ==
[~2017-06-12] VITALS: Ht 180.3 cm; Wt 92.8 kg
[2017-06-12 18:23] VITALS: BP 124/76; PULSE 69; TEMP 36.6; O2SAT 98; Ht 180.3 cm; Wt 92.8 kg
[2017-06-12] MEDS ORDERED: TRAMADOL HCL 50 MG HOME PACK PO STA (18:37)
[2017-06-12] MEDS ORDERED: PENICILLIN V POTASSIUM 250 MG TAB PO STA (18:37)
[2017-06-12] MEDS ORDERED: PENI-82 PO (18:39)
--- NOTE | 2017-06-12 18:41 | EMERGENCY ROOM VISIT NOTE ---
ED Visit Note First contact with patient: 18:27 CHIEF COMPLAINT: Toothache HISTORY OF PRESENT ILLNESS: This 32-year-old patient presented to the emergency department, ambulatory, with a progressive toothache for past "few days". The patient believes it is coming from a cracked upper tooth on the left side. The pain is now steady and severe and radiates to the face. He states he used rod cup filler the crack, and 2-3 days later began experiencing discomfort. The patient does have a dentist appointment set up for tomorrow. The patient has not seen anybody for the pain yet. They rate their pain a 10/ 10 and the copious amounts of ibuprofen and Tylenol they have been taking has not relieved the pain. Denies facial swelling or objective fever. The patient does report chills. The patient denies any discharge from the mouth. REVIEW OF SYSTEMS: A 6 system review of systems was completed with positives and pertinent negatives listed in the HPI. ALLERGIES: None MEDICATIONS: None PMH: None SOCIAL HISTORY: The patient lives locally with family. He admits to smoking 1 pack of cigarettes per day. He denies drug, alcohol use. PHYSICAL EXAM: Vitals are noted on the nurse's note and reviewed by myself. Vital signs stable. Temperature 36.6C orally. GENERAL: This is a 32-year-old male, in no acute distress, nondiaphoretic, well-developed well-nourished. Mouth: The #14 tooth is cracked, very carious and the gum is swollen and tender around it, without any discharge or signs of an abscess. The remainder of the pharynx and tonsils are without erythema, edema, or exudate. The airway is patent. There is no facial swelling, cervical or submandibular lymphadenopathy. The patient appears uncomfortable and in pain. The patient has overall poor dental hygiene. EARS: External auditory canals clear, tympanic membranes pearly moise without erythema or effusion bilaterally. HEART : RRR, no murmurs, gallops, rubs. LUNGS: Diffuse wheezing throughout. No rhonchi or rales noted. ED COURSE: The patient was seen and evaluated as above. I suspect the use of rod cup filler the tooth caused an infection in the fractured tooth. The patient will be started on antibiotics and given a home pack for tramadol to be used overnight until he is able to see the dentist tomorrow. The patient was encouraged to follow-up with the PCP regarding the wheezing in his lungs. He states "I do not see primary care doctors". I did discuss with him the risks associated with possible underlying asthma or COPD, especially in a smoker. The patient verbalized his understanding. Discharge instructions reviewed, patient was discharged home in good condition. I attest that I have personally reviewed the patient's current medication list. Patient was found to have normal blood pressure on screening and does not require follow-up. Differential diagnosis includes odontalgia, periapical abscess, acute sinusitis , osteomyelitis, gingivitis, pulpitis, dental caries, periodontitis, malignancy , and others DIAGNOSIS: Odontalgia The chart was completed utilizing [employer] Speech voice recognition software. Grammatical errors, random word insertions, pronoun errors, and incomplete sentences are an occasional consequence of this system due to software limitations, ambient noise, and hardware issues. Any formal questions or concerns about the content, text, or information contained within the body of this dictation should be directly addressed to the provider for clarification. Problem List Medical Problems: (1) Ulcer Status: Resolved Current/Historical Medications Scheduled Penicillin V Potassium (Veetids), 500 MG PO QID Allergies Coded Allergies: No Known Allergies (Verified , 10/12/15) Vital Signs Date Time Temp Pulse Resp B/P (MAP) Pulse Ox O2 Delivery O2 Flow Rate FiO2 06/12/17 18:23 36.6 69 20 124/76 98 Room Air Medications Administered Medications (Trade) Dose Ordered Sig/Drea Route Start Time Stop Time Status Last Admin Dose Admin Tramadol HCl (Ultram Home Pack) 1 homepack UD STAT PO 06/12/17 18:37 06/12/17 18:40 DC 06/12/17 18:47 1 HOMEPACK Penicillin V Potassium (Veetids Tab) 500 mg ONE STAT PO 06/12/17 18:37 06/12/17 18:40 DC 06/12/17 18:48 500 MG Departure Information Impression Primary Impression: Odontalgia Dispostion Home / Self-Care Condition GOOD Prescriptions Penicillin V Potassium (Veetids) 500 Mg Tab 500 MG PO QID for 9 Days, #36 TAB Prov: Sharmin Quiros, SUJEY 06/12/17 Referrals No Doctor, Assigned (PCP) Patient Instructions ED [facility] Additional Instructions You have been treated in the Emergency Department for Dental Pain. You have been prescribed tramadol to be used for pain control. This is a narcotic medication. You cannot drive or consume alcohol while on this medicine. This medicine should only be used for pain that cannot be controlled with [id number] pain medicines. You were prescribed Pen-V K to be taken 4 times daily 10 days. This is an antibiotic. All antibiotics have the potential to cause diarrhea. Stop this medication and contact a medical provider if you were to develop any significant adverse side effects including: wheezing, shortness of breath, passing out, vomiting, or a diffuse rash. Always take antibiotics as directed and COMPLETE the ENTIRE course regardless of the improvement of your symptoms. For pain control, you can use the following [id number] medicines (if >12 yo): Ibuprofen(Motrin, Advil) may be used for fever or pain. Use 600mg every six hours as needed. Take with food. Avoid using more than 2400mg in a 24 hour period. Do not use 2400mg per day for more than three consecutive days without physician direction. Prolonged inappropriate use can lead to stomach upset or ulcers. (AND/OR) Acetaminophen(Tylenol) may be used for fever or pain. Use 1000mg every six hours as needed. Avoid using more than 3000mg in a 24 hour period. Refrain from smoking cigarettes or using chewing tobacco until you have been evaluated by your dentist. Keeping beverages lukewarm and consuming soft foods can decrease your pain. Warm compresses over the affected area may offer some relief. You MUST seek evaluation of your dental pain by a dentist following your visit to the Emergency Department. The Emergency Department is not capable of treating dental issues long-term. You should call your dentist as soon as possible to make an appointment for evaluation of your dental pain. Return to the emergency department if you develop the following symptoms despite treatment course outlined above: fever, intractable pain, increased redness, swelling, or purulent discharge.
== END 2017-06-12 18:51 | disposition home or self-care (01) ==
LOC: C.EDB 18:15 → C.EDD 18:51
DX: S02.5XXA Fracture of tooth (traumatic), initial encounter for closed fracture (principal); X58.XXXA Exposure to other specified factors, initial encounter; K02.9 Dental caries, unspecified; R06.2 Wheezing; F17.210 Nicotine dependence, cigarettes, uncomplicated